=== PATIENT | male | born 1970 | race Caucasian/White ===

== ENCOUNTER 2022-06-14 11:45 | Emergency (ER) | payer MEDICAID ==
[~2022-06-14] VITALS: Ht 175.3 cm; Wt 113.6 kg
[2022-06-14 12:04] VITALS: BP 166/106
[2022-06-14] MEDS ORDERED: ketorolac trometh inj. 60 MG/2 ML VIAL IM ONE (13:25)
[2022-06-14] MEDS ORDERED: LORA-269 PO (13:25)
[2022-06-14] MEDS ORDERED: NAPR-56 PO (13:25)
[2022-06-14] MEDS ORDERED: LORazepam 1 MG tablet PO ONE (13:25)
== END 2022-06-14 13:41 | disposition home or self-care (01) ==
LOC: ER 11:48
DX: M54.50 Low back pain, unspecified (principal); G89.29 Other chronic pain; M62.830 Muscle spasm of back; I10 Essential (primary) hypertension; Z88.0 Allergy status to penicillin; Z79.899 Other long term (current) drug therapy
CPT/HCPCS: 96372; 99283; J1885